=== PATIENT | female | born 1990 | race Caucasian/White ===

== ENCOUNTER 2017-04-14 19:48 | Emergency (ER) | payer MEDICAID ==
[~2017-04-14] VITALS: Ht 165.1 cm; Wt 63.6 kg
[~2017-04-14 19:48] MED LIST: CIPRO500 MG PO; FLEXERIL5 MG PO; MOTRIN 800800 MG/TAB PO; NO HOME MEDICATIONS; NORCO 325 MG-51 TAB PO
[2017-04-14 19:51] VITALS: BP 134/75; TEMP 98.1
[2017-04-14] MEDS ORDERED: PRENATAL MVI (19:55)
[2017-04-14 20:49] LABS: BASO % 0.1 % (0.0-2.0); EOS # 0.1 (0.0-0.7); EOS % 0.7 % (0-4.0); GRAN # 4.5 (1.4-6.5); GRAN % 63.6 % (42.2-75.2); LYMPH # 1.9 (1.2-3.4); LYMPH % 26.6 % (20.0-51.0); MEAN CELL VOLUME 90 fl (80.0-100.0); MEAN CORPUSCULAR HGB CONC 34 g/dl (33.0-37.0); MEAN PLATELET VOLUME 9.2 fl (7.4-10.4); MONO # 0.6 (0.1-0.6); MONO % 8.7 % (1.7-9.3); PLATELET COUNT 173 K/mm3 (130-400); RED BLOOD COUNT 3.71 M/mm3 (4.10-5.30); REDCELL DISTRIBUTION WIDTH-CV 12.7 % (11.5-14.5)
[2017-04-14 20:49] LABS: COLLECTION METHOD CLEAN CATCH
[2017-04-14 20:51] LABS: HEMATOCRIT 33.2 % (37.0-47.0); HEMOGLOBIN 11.2 g/dl (12.5-16.0); MEAN CORPUSCULAR HEMOGLOBIN 30 pg (27.0-31.0)
[2017-04-14 20:55] LABS: PH 7 (5-8); SQUAMOUS EPITHELIAL 0-2 /hpf; URINE APPEARANCE Clear; URINE BACTERIA None Seen /hpf; URINE BILIRUBIN Negative (NEGATIVE); URINE BLOOD Negative (NEGATIVE); URINE COLOR Colorless; URINE GLUCOSE Negative (NEGATIVE); URINE KETONE Negative (NEGATIVE); URINE LEUKOCYTE ESTERASE Negative (NEGATIVE); URINE NITRATE Negative (NEGATIVE); URINE PROTEIN(semi-quant) Negative (NEGATIVE); URINE RBC 0-2 /hpf; URINE UROBILINOGEN Negative (NEGATIVE)
[2017-04-14 20:59] LABS: ALBUMIN 4.1 gm/dL (3.5-5.0); BILIRUBIN,TOTAL 0.2 mg/dL (0.0-1.0); CALCIUM 9.2 mg/dL (8.4-10.2); CREATININE, serum 0.59 mg/dL (0.52-1.25); POTASSIUM 3.3 mmol/L (3.4-5.0); TOTAL PROTEIN 7.4 gm/dL (6.4-8.2)
[2017-04-14 21:57] VITALS: PULSE 82
== END 2017-04-14 21:58 | disposition home or self-care (01) ==
LOC: COL.ER 19:48
PROVIDERS: Emergency Medicine
DX: O26.892 Other specified pregnancy related conditions, second trimester (principal); R10.13 Epigastric pain; Z3A.19 19 weeks gestation of pregnancy

== ENCOUNTER 2017-08-27 18:43 | Outpatient (CLI) | payer MEDICAID ==
[~2017-08-27] VITALS: Ht 167.6 cm; Wt 75.9 kg
[2017-08-27 18:35] VITALS: BP 120/71; PULSE 73
[~2017-08-27 18:43] MED LIST changes: +PRENATAL MVI
[2017-08-27 20:26] VITALS: BP 120/71; PULSE 73; TEMP 98.2
== END 2017-08-27 19:20 | disposition home or self-care (01) ==
LOC: LDRO 18:43 → LDR 19:07 → LDRO 19:20
DX: Z34.03 Encounter for supervision of normal first pregnancy, third trimester (principal); Z3A.38 38 weeks gestation of pregnancy

== ENCOUNTER 2017-09-02 11:08 | Inpatient (IN) | payer MEDICAID ==
[~2017-09-02] VITALS: Ht 167.6 cm; Wt 75.9 kg
[2017-09-02] VITALS (49 sets, daily range): BP systolic 114–142; BP diastolic 57–89; PULSE 62–157; TEMP 98–98.7
[2017-09-02 12:11] LABS: COLLECTION METHOD CLEAN CATCH
[2017-09-02 12:16] LABS: BASO % 0.4 % (0.0-2.0); EOS % 0.4 % (0-4.0); GRAN # 5.8 (1.4-6.5); GRAN % 73.4 % (42.2-75.2); HEMOGLOBIN 10.4 g/dl (12.5-16.0); LYMPH # 1.4 (1.2-3.4); LYMPH % 17.8 % (20.0-51.0); MEAN CELL VOLUME 81 fl (80.0-100.0); MEAN CORPUSCULAR HEMOGLOBIN 26 pg (27.0-31.0); MEAN CORPUSCULAR HGB CONC 32 g/dl (33.0-37.0); MEAN PLATELET VOLUME 11.1 fl (7.4-10.4); MONO # 0.6 (0.1-0.6); MONO % 7.4 % (1.7-9.3); PLATELET COUNT 151 K/mm3 (130-400); RED BLOOD COUNT 3.96 M/mm3 (4.10-5.30); REDCELL DISTRIBUTION WIDTH-CV 13.6 % (11.5-14.5)
[2017-09-02 12:20] LABS: MUCOUS Present /lpf; PH 6 (5-8); SQUAMOUS EPITHELIAL 0-2 /hpf; URINE APPEARANCE Clear; URINE BACTERIA None Seen /hpf; URINE BILIRUBIN Negative (NEGATIVE); URINE BLOOD 1+ (NEGATIVE); URINE COLOR Yellow; URINE GLUCOSE Negative (NEGATIVE); URINE KETONE Negative (NEGATIVE); URINE LEUKOCYTE ESTERASE Negative (NEGATIVE); URINE NITRATE Negative (NEGATIVE); URINE PROTEIN(semi-quant) Negative (NEGATIVE); URINE RBC 0-2 /hpf; URINE UROBILINOGEN Negative (NEGATIVE); URINE WBC 0-2 /hpf
[2017-09-02 12:21] LABS: HEMATOCRIT 32.2 % (37.0-47.0)
[2017-09-02 12:24] LABS: ALBUMIN 3.4 gm/dL (3.5-5.0); BILIRUBIN,TOTAL 0.4 mg/dL (0.0-1.0); CALCIUM 9.1 mg/dL (8.4-10.2); CREATININE, serum 0.58 mg/dL (0.52-1.25); TOTAL PROTEIN 7.2 gm/dL (6.4-8.2)
[2017-09-03 00:45] VITALS: BP 115/68; PULSE 71
[2017-09-03 04:00] VITALS: BP 115/67; PULSE 80; TEMP 99.3
[2017-09-03 07:10] VITALS: BP 118/80; PULSE 99; TEMP 98.5
[2017-09-03 07:47] LABS: HEMATOCRIT 27.6 % (37.0-47.0)
[2017-09-03 11:29] VITALS: BP 120/77; PULSE 89; TEMP 97.8
[2017-09-03 16:20] VITALS: BP 129/79; PULSE 76; TEMP 98.2
[2017-09-03] MEDS ORDERED: PERCOCET 325 MG1 TA2 PO (16:44)
[2017-09-03] MEDS ORDERED: IBU600 MG PO (16:44)
[2017-09-03 20:18] VITALS: BP 134/83; PULSE 87; TEMP 97.6
[2017-09-04 09:15] VITALS: BP 138/78; PULSE 96; TEMP 97.6
== END 2017-09-04 14:10 | disposition home or self-care (01) | DRG 774 ==
LOC: OB 11:08 → LDR 11:45 → OB 11:45
PROVIDERS: Obstetrics & Gynecology
PROC: 10E0XZZ Delivery of Products of Conception, External Approach (ICD-10-PCS; principal; 2017-09-02)
PROC: 0KQM0ZZ Repair Perineum Muscle, Open Approach (ICD-10-PCS; 2017-09-02)
PROC: 0UQMXZZ Repair Vulva, External Approach (ICD-10-PCS; 2017-09-02)
DX: O42.12 Full-term premature rupture of membranes, onset of labor more than 24 hours following rupture (principal); O98.32 Other infections with a predominantly sexual mode of transmission complicating childbirth; Z3A.39 39 weeks gestation of pregnancy; Z37.0 Single live birth; O70.1 Second degree perineal laceration during delivery; O70.0 First degree perineal laceration during delivery; A63.0 Anogenital (venereal) warts; O99.02 Anemia complicating childbirth
CPT/HCPCS: J0690; J2405; J2550; J2590; J2795; J7120